=== PATIENT | male | born 1960 | race Caucasian/White ===

== ENCOUNTER 2016-10-06 18:48 | Emergency (ER) | payer BC, OTHER ==
[2016-10-06 19:09] VITALS: BP 142/93
--- NOTE | 2016-10-06 19:52 | EDM.PDOC ---
ED HPI Trauma - General Chief Complaint: Upper Extremity Injury/Pain Stated Complaint: WRIST PAIN Time Seen by Provider: 10/06/16 18:58 Source: Reports: Patient History Limitations: Reports: No limitations - History of Present Illness INITIAL COMMENTS - FREE TEXT/NARRATIVE: This is a 56-year-old male. On August 22 he had a procedure done to his left wrist and forearm. From an understanding took a piece of bone from his old and will hold onto the tendon and wrapped it around the radius and removed 2 carpal bones. This procedure was done by Dr. Cuba. The patient states over the last 2 weeks he been having increasing pain in his left wrist that seems to radiate into his fourth and fifth finger and also up into his forearm and elbow. Any movement of that wrist or movement of the hand are trying to hold something with the left hand seems to exacerbate this pain. It has progressively increased until Saturday he states it was unbearable. So he comes to the ER today. He has not called his surgeon though he supposed to have an appointment to see him next week late. The patient has a sling and wears a fabricator the splint on that forearm and wrist is removable. Denies any fever or chills he denies any trauma to the forearm and wrist recently. Allergies/ADRs: Allergies No Known Allergies Allergy (Verified 10/06/16 19:09) Home Medications: Ambulatory Orders Aspirin 81 mg PO DAILY 10/12/13 [Confirmed 10/06/16] Clopidogrel Bisulfate [Clopidogrel] 75 mg PO DAILY 10/12/13 [Confirmed 10/06/16] Lisinopril [Lisinopril] 2.5 mg PO DAILY 10/12/13 [Confirmed 10/06/16] Metoprolol Tartrate [Lopressor] 25 mg PO DAILY 10/12/13 [Confirmed 10/06/16] atorvaSTATin [Lipitor] 40 mg PO DAILY 10/12/13 [Confirmed 10/06/16] Albuterol/Ipratropium [Combivent Respimat] 1 puff INH QID PRN 06/29/14 [ Confirmed 10/06/16] Budesonide/Formoterol [Symbicort 160-4.5 Mcg Inhaler] 2 puff INH BID 06/29/14 [ Confirmed 10/06/16] Pantoprazole [ProTONIX] 40 mg PO DAILY 06/29/14 [Confirmed 10/06/16] oxyCODONE HCl [Oxycontin] 5 mg PO Q6H 10/06/16 [Confirmed 10/06/16] Past Medical History Cardiovascular History: Reports: [place], Stents Other Cardiovascular History: two stents left anterior descending artery Respiratory History: Reports: COPD Gastrointestinal History: Reports: GERD Musculoskeletal History: Reports: Arthritis - Past Surgical History HEENT Surgical History: Reports: Tonsillectomy Respiratory Surgical History: Reports: None Musculoskeletal Surgical History: Reports: Other (see below) Other Musculoskeletal Surgeries/Procedures:: two carpal bones surgically removed left wrist Social & Family History - Tobacco Use Smoking Status *Q: Former Smoker Years of Tobacco use: 40 Used Tobacco, but Quit: Yes Month Tobacco Last Used: 3 years ago Second Hand Smoke Exposure: No - Caffeine Use Caffeine Use: Reports: Soda - Alcohol Use Days Per Week of Alcohol Use: 1 (Used to be an alcoholic. Currently he is down to about 4 beers once a week.) Number of Drinks Per Day: 5 Total Drinks Per Week: 5 - Recreational Drug Use Recreational Drug Use: No Review of Systems - Review of Systems Review Of Systems: See Below Constitutional: Denies: chills, fever Eyes: Reports: no symptoms Ears: Reports: no symptoms Nose: Reports: no symptoms Mouth/Throat: Reports: no symptoms Respiratory: Reports: No Symptoms Cardiovascular: Reports: no symptoms GI/Abdominal: Reports: No symptoms Genitourinary: Reports: no symptoms Musculoskeletal: Reports: other (As per history of present illness) Skin: Reports: no symptoms Neurological: Reports: No Symptoms Psychiatric: Reports: no symptoms Trauma Exam - Physical Exam Exam: See Below Exam Limited By: No limitations General Appearance: Reports: alert, WD/WN, mild distress Head: Reports: normocephalic Eyes: bilateral eye: normal inspection Ears: Reports: normal external exam Nose: Reports: normal inspection Throat/Mouth: Reports: Normal lips, Normal voice Neck: Reports: full range of motion Respiratory Exam: Reports: no respiratory distress Back: Reports: full range of motion Extremities: Reports: other (Looking at the left forearm there is a surgical incision over the distal ulnar that appears to be well healed without any evidence of infection, the left wrist itself is mildly deformed due to the surgery but no acute findings are noted, he is able to make a fist but once he tries to close it there is marked increased pain and he has to relax the hand, palpation of the ulnar nerve at the wrist and also at the elbow does not reproduce his pain but it seems like movement of his fourth and fifth fingers tendons are what aggravated his pain, he's got a good radial pulse noted, sensation is intact in all 5 digits) Neurologic: Reports: alert, oriented x 3 Skin: Reports: Normal color, Warm/dry Course - Vital Signs Last Recorded V/S: Last Vital Signs Temp 98.5 F 10/06/16 19:04 Pulse 60 10/06/16 19:04 Resp 19 10/06/16 19:04 BP 142/93 H 10/06/16 19:04 Pulse Ox 93 L 10/06/16 19:04 - Orders/Labs/Meds Orders: Active Orders 24 hr Category Date Time Status Forearm 2V Lt [CR] Stat Exams 10/06/16 19:31 Taken Wrist Comp Min 3V Lt [CR] Stat Exams 10/06/16 19:31 Taken - Radiology Interpretation Free Text/Narrative:: X-rays of the left wrist and the left forearm shows the status post surgical status there does not appear to be any obvious abnormality other than the surgical procedure. - Re-Assessments/Exams Free Text/Narrative Re-Assessment/Exam: 10/06/16 21:18 I spoke to the patient at length regarding his symptoms and the need to followup with Dr. Cuba on Saturday for reevaluation. The Percocet causes him to be here in the head so he doesn't take them so I'll put him on some Toradol pills hopefully to help with the pain and any inflammation might be causing the pain. Departure - Departure Time of Disposition: 21:19 Disposition: Home, Self-Care 01 Condition: good Clinical Impression: Pain associated with surgical procedure, Wrist pain, left Referrals: Abner Cuba MD [Consulting Physician] - Forms: ED Department Discharge Additional Instructions: Call Dr. Cuba's office on Saturday to see to get an appointment as soon as possible, if the arm is feeling good I would be without the splint for comfort and use ice as needed to help with the pain, once the arm and wrist get tired than placed the splint back on, return to the ER as needed - My Orders Last 24 Hours: My Active Orders 10/06/16 19:31 Forearm 2V Lt [CR] Stat Wrist Comp Min 3V Lt [CR] Stat - Assessment/Plan Last 24 Hours: My Active Orders 10/06/16 19:31 Forearm 2V Lt [CR] Stat Wrist Comp Min 3V Lt [CR] Stat
--- NOTE | 2016-10-07 09:36 | CR ---
Forearm: Two views of the left forearm were obtained. Comparison: Previous wrist surgery is noted. Bony structures are somewhat osteopenic. Nothing acute is appreciated. Impression: 1. Previous left wrist surgery. Osteopenia. 2. No acute bony abnormality is identified on left forearm study. Diagnostic code #2
--- NOTE | 2016-10-07 13:54 | CR ---
Left wrist: Four views of the left wrist were obtained. Comparison: No previous study. Previous resection of the distal ulna is noted. Mild deformity of the distal radius is seen compatible with old healed fracture. Several bony densities are seen off the lateral wrist felt to be old. Previous resection of the portion of the navicular bone is noted. Bony structures are osteoporotic. Mild degenerative change noted within the CMC joint of the thumb. Metallic density noted within the lateral hand. Soft tissue swelling is noted. Nothing acute is definitely appreciated. Impression: 1. Previous surgery as described above. 2. Mild degenerative change and other incidental findings. 3. Nothing acute is definitely appreciated. Diagnostic code #3
== END 2016-10-06 21:30 | disposition home or self-care (01) ==
LOC: JD.ED 18:48
DX: G89.18 Other acute postprocedural pain (principal); M25.532 Pain in left wrist; J44.9 Chronic obstructive pulmonary disease, unspecified; K21.9 Gastro-esophageal reflux disease without esophagitis; Z79.82 Long term (current) use of aspirin; Z79.899 Other long term (current) drug therapy; Z87.891 Personal history of nicotine dependence
CPT/HCPCS: 73090-26-LT; 73090-LT; 73110-26-LT; 73110-LT; 99282; 99283

== ENCOUNTER 2016-12-29 14:07 | Emergency (ER) | payer BC, OTHER ==
[2016-12-29 14:20] VITALS: BP 107/74
[2016-12-29] MEDS ORDERED: Sodium Chloride 0.9% 10 ML Syringe FLUSH PRN (14:23)
[2016-12-29] MEDS ORDERED: Aspirin 81 MG Tab.Chew PO ONE (14:23)
--- NOTE | 2016-12-29 15:03 | EDM.PDOC ---
ED HPI GENERAL MEDICAL PROBLEM - General Chief Complaint: Cardiovascular Problem Stated Complaint: CHEST PAIN Time Seen by Provider: 12/29/16 14:18 Source of Information: Reports: Patient History Limitations: Reports: No Limitations - History of Present Illness INITIAL COMMENTS - FREE TEXT/NARRATIVE: The patient presents with chest pain. He was unloading groceries at home with this started about 30minutes ago. He had heaviness in his chest. He sat down and took a nitro. That did help. By the time I saw him he had no pain. He had no shortness of breath. He has no nausea, vomiting or abdominal pain. He had an CA 3 years ago and his concerned because the pain felt the same. He has no fever, chills or cough. Onset: Today, Sudden Duration: Minutes: (30) Location: Reports: Chest Quality: Reports: Other (Heaviness) Severity: Moderate Improves with: Reports: Rest Worsens with: Reports: None Context: Reports: Activity (He was unloading groceries) Associated Symptoms: Reports: Chest Pain. Denies: Cough, Fever/Chills, Nausea/ Vomiting, Shortness of Breath Treatments [employer]: Reports: Nitroglycerin Chest Pain Score (Numeric/FACES): 2 - Related Data Allergies Allergy/AdvReac Type Severity Reaction Status Date / Time No Known Allergies Allergy Verified 12/29/16 14:20 Home Meds: Home Meds Aspirin 81 mg PO DAILY 10/12/13 [History] Clopidogrel Bisulfate [Clopidogrel] 75 mg PO DAILY 10/12/13 [History] Lisinopril [Lisinopril] 2.5 mg PO DAILY 10/12/13 [History] Metoprolol Tartrate [Lopressor] 25 mg PO DAILY 10/12/13 [History] atorvaSTATin [Lipitor] 40 mg PO DAILY 10/12/13 [History] Albuterol/Ipratropium [Combivent Respimat] 1 puff INH QID PRN 06/29/14 [History] Budesonide/Formoterol [Symbicort 160-4.5 Mcg Inhaler] 2 puff INH BID 06/29/14 [ History] Pantoprazole [ProTONIX] 40 mg PO DAILY 06/29/14 [History] oxyCODONE HCl [Oxycontin] 5 mg PO Q6H 10/06/16 [History] Past Medical History Cardiovascular History: Reports: CA, SOB on Exertion, Stents Other Cardiovascular History: two stents left anterior descending artery Respiratory History: Reports: COPD Gastrointestinal History: Reports: GERD Musculoskeletal History: Reports: Arthritis - Past Surgical History HEENT Surgical History: Reports: Tonsillectomy Cardiovascular Surgical History: Reports: Coronary Artery Stent Respiratory Surgical History: Reports: None Musculoskeletal Surgical History: Reports: Other (See Below) Social & Family History - Family History Family Medical History: Noncontributory - Tobacco Use Smoking Status *Q: Former Smoker Years of Tobacco use: 25 Used Tobacco, but Quit: Yes Month Tobacco Last Used: 1 Second Hand Smoke Exposure: No - Caffeine Use Caffeine Use: Reports: Soda - Alcohol Use Days Per Week of Alcohol Use: 1 (Used to be an alcoholic. Currently he is down to about 4 beers once a week.) Number of Drinks Per Day: 5 Total Drinks Per Week: 5 - Recreational Drug Use Recreational Drug Use: No ED ROS GENERAL - Review of Systems Review Of Systems: See Below Constitutional: Reports: No Symptoms HEENT: Reports: No Symptoms Respiratory: Reports: No Symptoms Cardiovascular: Reports: Chest Pain Endocrine: Reports: No Symptoms GI/Abdominal: Reports: No Symptoms : Reports: No Symptoms Musculoskeletal: Reports: No Symptoms Skin: Reports: No Symptoms ED EXAM, GENERAL - Physical Exam Exam: See Below Exam Limited By: No Limitations General Appearance: Alert, No Apparent Distress Ears: Normal External Exam Nose: Normal Inspection Head: Atraumatic, Normocephalic Neck: Normal Inspection Respiratory/Chest: No Respiratory Distress, Lungs Clear, Normal Breath Sounds Cardiovascular: Normal Peripheral Pulses, Regular Rate, Rhythm, No Edema GI/Abdominal: Soft, Non-Tender, No Organomegaly, No Mass Back Exam: Normal Inspection Extremities: Normal Inspection EKG INTERPRETATION EKG Date: 12/29/16 Time: 14:13 Rhythm: Other (sinus bradycardia) Rate (Beats/Min): 52 [place]: Normal P-Wave: Present QRS: RBBB ST-T: Normal QT: Normal Course - Vital Signs Last Recorded V/S: Last Vital Signs Temp 98.1 F 12/29/16 14:17 Pulse 53 L 12/29/16 14:17 Resp 16 12/29/16 14:17 BP 107/74 12/29/16 14:17 Pulse Ox 94 L 12/29/16 14:17 - Orders/Labs/Meds Orders: Active Orders 24 hr Category Date Time Status Cardiac Monitoring [RC] . DIRECTED Care 12/29/16 14:23 Active EKG Documentation Completion [RC] STAT Care 12/29/16 14:23 Active Oxygen Therapy [RC] PRN Care 12/29/16 14:23 Active Peripheral IV Care [RC] . DIRECTED Care 12/29/16 14:23 Active Chest 1V Frontal [CR] Stat Exams 12/29/16 14:23 Taken TROPONIN I [CHEM] Stat Lab 12/29/16 17:15 Received Sodium Chloride 0.9% [Saline Flush] Med 12/29/16 14:23 Active 10 ml FLUSH ASDIRECTED PRN Peripheral IV Insertion Adult [OM.PC] Stat Oth 12/29/16 14:23 Ordered Medication Orders Sodium Chloride (Saline Flush) 10 ml FLUSH ASDIRECTED PRN PRN Reason: Keep Vein Open Last Admin: 12/29/16 14:28 Dose: 10 ml Labs: Laboratory Tests 12/29/16 12/29/16 Range/Units 14:20 14:20 WBC 9.84 H (4.23-9.07) K/mm3 RBC 4.75 (4.63-6.08) M/mm3 Hgb 14.8 (13.7-17.5) gm/L Hct 43.1 (40.1-51.0) % MCV 90.7 (79.0-92.2) fl MCH 31.2 (25.7-32.2) pg MCHC 34.3 (32.2-35.5) g/dl RDW Std Deviation 43.9 (35.1-43.9) fL Plt Count 171 (163-337) K/mm3 MPV 12.4 H (9.4-12.3) fl Neut % (Auto) 58.4 (34.0-67.9) % Lymph % (Auto) 26.7 (21.8-53.1) % [place] % (Auto) 12.1 (5.3-12.2) % Eos % (Auto) 2.2 (0.8-7.0) Baso % (Auto) 0.3 (0.1-1.2) % Neut # (Auto) 5.74 H (1.78-5.38) K/mm3 Lymph # (Auto) 2.63 (1.32-3.57) K/mm3 [place] # (Auto) 1.19 H (0.30-0.82) K/mm3 Eos # (Auto) 0.22 (0.04-0.54) K/mm3 Baso # (Auto) 0.03 (0.01-0.08) K/mm3 Sodium 140 (136-145) mEq/L Potassium 3.8 (3.5-5.1) mEq/L Chloride 105 (98-107) mEq/L Carbon Dioxide 27 (21-32) mEq/L Anion Gap 11.8 (5-15) BUN 13 (7-18) mg/dL Creatinine 1.2 (0.7-1.3) mg/dL Est Cr Clr Drug Dosing TNP Estimated GFR (MDRD) > 60 (>60) mL/min BUN/Creatinine Ratio 10.8 L (14-18) Glucose 128 H (74-106) mg/dL Calcium 8.7 (8.5-10.1) mg/dL Total Bilirubin 0.8 (0.2-1.0) mg/dL AST 21 (15-37) U/L ALT 41 (16-63) U/L Alkaline Phosphatase 122 H (46-116) U/L Troponin I < 0.017 (0.00-0.056) ng/mL Total Protein 7.5 (6.4-8.2) g/dl Albumin 4.2 (3.4-5.0) g/dl Globulin 3.3 gm/dL Albumin/Globulin Ratio 1.3 (1-2) Meds: Medications Generic Name Dose Route Start Last Admin Trade Name Freq PRN Reason Stop Dose Admin Sodium Chloride 10 ml 12/29/16 14:23 12/29/16 14:28 Saline Flush FLUSH 10 ml ASDIRECTED PRN Administration Keep Vein Open Discontinued Medications Generic Name Dose Route Start Last Admin Trade Name Freq PRN Reason Stop Dose Admin Aspirin 324 mg 12/29/16 14:23 12/29/16 14:27 Aspirin PO 12/29/16 14:24 324 mg ONETIME ONE Administration - Re-Assessments/Exams Free Text/Narrative Re-Assessment/Exam: 12/29/16 15:05 I ordered an IV saline lock, aspirin 324mg by mouth, EKG, CXR and labs. He is pain free now. His EKG shows a RBBB. 12/29/16 17:24 His CXR looks good. His CBC and CMP look good. His troponin is negative. He has no more pain. I have ordered a repeat troponin. I will call him the results. He has company coming and he would like to go. Departure - Departure Time of Disposition: 17:25 Disposition: Home, Self-Care 01 Condition: Good Clinical Impression: Chest pain Qualifiers: Chest pain type: unspecified Qualified Code(s): R07.9 - Chest pain, unspecified Referrals: Jasmina Deleon MD [Primary Care Provider] - 2 Weeks Forms: ED Department Discharge Additional Instructions: Take your medication as prescribed. Please return if you are worse. - My Orders Last 24 Hours: My Active Orders 12/29/16 14:23 Cardiac Monitoring [RC] . DIRECTED EKG Documentation Completion [RC] STAT Oxygen Therapy [RC] PRN Peripheral IV Care [RC] . DIRECTED Chest 1V Frontal [CR] Stat Sodium Chloride 0.9% [Saline Flush] 10 ml FLUSH ASDIRECTED PRN Peripheral IV Insertion Adult [OM.PC] Stat 12/29/16 17:15 TROPONIN I [CHEM] Stat - Assessment/Plan Last 24 Hours: My Active Orders 12/29/16 14:23 Cardiac Monitoring [RC] . DIRECTED EKG Documentation Completion [RC] STAT Oxygen Therapy [RC] PRN Peripheral IV Care [RC] . DIRECTED Chest 1V Frontal [CR] Stat Sodium Chloride 0.9% [Saline Flush] 10 ml FLUSH ASDIRECTED PRN Peripheral IV Insertion Adult [OM.PC] Stat 12/29/16 17:15 TROPONIN I [CHEM] Stat
--- NOTE | 2016-12-30 06:50 | CR ---
Chest: Portable view of the chest was obtained. Comparison: Previous chest x-ray of 09/19/13. Heart size is normal. Mild tortuosity of the thoracic aorta is seen. Lungs are clear with no acute infiltrates. Bony structures are osteopenic but grossly intact. Impression: 1. Nothing acute is identified on portable chest x-ray. Diagnostic code #1
== END 2016-12-29 17:33 | disposition home or self-care (01) ==
LOC: JD.ED 14:07
DX: R07.9 Chest pain, unspecified (principal); I25.2 Old myocardial infarction; J44.9 Chronic obstructive pulmonary disease, unspecified; K21.9 Gastro-esophageal reflux disease without esophagitis; M19.90 Unspecified osteoarthritis, unspecified site; Z95.5 Presence of coronary angioplasty implant and graft; Z98.890 Other specified postprocedural states; Z79.82 Long term (current) use of aspirin; Z79.02 Long term (current) use of antithrombotics/antiplatelets; Z79.899 Other long term (current) drug therapy; Z87.891 Personal history of nicotine dependence
CPT/HCPCS: 36415; 71010; 80053; 84484; 85025; 93005; 99285; A9270; J7050; 99284

== ENCOUNTER 2017-10-16 03:25 | Emergency (ER) | payer BC, OTHER ==
[2017-10-16] MEDS ORDERED: Ondansetron 4 MG/2 ML SDV IVPUSH ONE (05:32)
[2017-10-16] MEDS ORDERED: HYDROmorphone 0.5 MG/0.5 ML SYRINGE IVPUSH STA (05:32)
[2017-10-16] MEDS ORDERED: Sodium Chloride 0.9% 1,000 ML IV SCH (05:45)
--- NOTE | 2017-10-16 05:47 | EDM.PDOC ---
ED HPI GENERAL MEDICAL PROBLEM - General Source of Information: Reports: Patient, Family (Sister) History Limitations: Reports: No Limitations Lower Back Pain Score (Numeric/FACES): 10 <Adonay Gardiner - Last Filed: 10/16/17 06:57> <PetrCammatteo Johnson - Last Filed: 10/16/17 15:16> - General Chief Complaint: Back Pain or Injury Stated Complaint: [facility] Time Seen by Provider: 10/16/17 03:28 - History of Present Illness INITIAL COMMENTS - FREE TEXT/NARRATIVE: The patient states that he slipped and fell flat on his back Saturday night, 2017. He states that he had immediate pain to the left side of his thoracic and lumbar spine. He states that he started to wear a wrap, and felt better yesterday morning, but his pain returned and progressively got worse yesterday afternoon, to the point that by last night he could not move. He states that he feels okay if he remains perfectly still, but developed severe spasms with virtually any movement. He took a [place] before calling EMS tonight, and EMS gave him an additional 1 mg IV Dilaudid just to be able to transport him. No prior injury to that area. The patient's PCP is Dr. Jasmina Deleon. (Adonay Gardiner) - Related Data Allergies Allergy/AdvReac Type Severity Reaction Status Date / Time No Known Allergies Allergy Verified 12/29/16 14:20 Home Meds: Home Meds Aspirin 81 mg PO DAILY 10/12/13 [History] Lisinopril 2.5 mg PO DAILY 10/12/13 [History] atorvaSTATin [Lipitor] 40 mg PO DAILY 10/12/13 [History] Albuterol/Ipratropium [Combivent Respimat] 1 puff INH QID PRN 06/29/14 [History] Budesonide/Formoterol [Symbicort 160-4.5 Mcg Inhaler] 2 puff INH BID 06/29/14 [ History] Pantoprazole [ProTONIX] 40 mg PO DAILY 06/29/14 [History] Atenolol 12.5 mg PO DAILY 10/16/17 [History] Cyclobenzaprine [Flexeril] 10 mg PO TID PRN #30 tab 10/16/17 [Rx] Esomeprazole [NexIUM] 40 mg PO DAILY 10/16/17 [History] Gabapentin [Neurontin] 300 mg PO DAILY 10/16/17 [History] Hydrocodone/Acetaminophen [Hydrocodon-Acetaminophn 10-325] 1 tab PO Q4H PRN 02/25 [History] Ibuprofen [Ibu] 800 mg PO TID PRN #40 tablet 10/16/17 [Rx] Ondansetron [Zofran ODT] 4 mg PO Q4H PRN 10/16/17 [History] Sertraline [Zoloft] 25 mg PO DAILY 10/16/17 [History] Sertraline [Zoloft] 75 mg PO DAILY 10/16/17 [History] traMADol [Ultram] 1 tab PO Q6H PRN 10/16/17 [History] traMADol [Ultram] 50 mg PO Q6HR PRN #15 tab 10/16/17 [Rx] Past Medical History Cardiovascular History: Reports: CAD, [place] Respiratory History: Reports: COPD Gastrointestinal History: Reports: GERD Musculoskeletal History: Reports: Arthritis - Past Surgical History HEENT Surgical History: Reports: Oral Surgery ([place] teeth extraction), Tonsillectomy Cardiovascular Surgical History: Reports: Coronary Artery Stent (x 2 to LAD) GI Surgical History: Reports: Hernia Repair/Other <Adonay Gardiner - Last Filed: 10/16/17 06:57> Social & Family History - Family History Family Medical History: Noncontributory - Tobacco Use Smoking Status *Q: Current Every Day Smoker Years of Tobacco use: 44 Packs/Tins Daily: 0.2 Packs/Tins Daily Comment: Down from 3 ppd - Caffeine Use Caffeine Use: Reports: None - Alcohol Use Alcohol Use History: Yes Alcohol Use Frequency: Binges - Recreational Drug Use Recreational Drug Use: No - Living Situation & Occupation Living situation: Reports: , Alone Occupation: Unemployed <Adonay Gardiner - Last Filed: 10/16/17 06:57> Review of Systems - Review of Systems Review Of Systems: ROS reveals no pertinent complaints other than HPI. <Adonay Gardiner - Last Filed: 10/16/17 06:57> ED EXAM, GENERAL - Physical Exam Exam: See Below Exam Limited By: No Limitations General Appearance: Alert, WD/WN, No Apparent Distress Eye Exam: Bilateral Eye: Normal Inspection Ears: Normal External Exam, Hearing Grossly Normal Nose: Normal Inspection, No Blood Throat/Mouth: Normal Inspection, Normal Lips, Normal Voice, No Airway Compromise Head: Atraumatic, Normocephalic Neck: Normal Inspection, Full Range of Motion Respiratory/Chest: No Respiratory Distress, Lungs Clear, Normal Breath Sounds, No Accessory Muscle Use Cardiovascular: Normal Peripheral Pulses, Regular Rate, Rhythm, No Gallop, No JVD, No Murmur, No Rub Peripheral Pulses: 4+: Radial (L), Radial (R) GI/Abdominal: Normal Bowel Sounds, Soft, Non-Tender, No Organomegaly, No Distention, No Abnormal Bruit, No Mass (Male) Exam: Deferred Rectal (Males) Exam: Deferred Back Exam: Other (No visible abnormality to the left mid-back, such as swelling , erythema, ecchymosis, or abrasion. No tenderness to palpation along the thoracic or lumbar spinous processes, however, the patient screams out in pain with even the slightest touch just immediately left of the thoracic or lumbar spinous processes. His tenderness is so extreme as to disallow meaningful palpation of the paraspinous musculature or soft tissue.) Extremities: Normal Inspection, Normal Range of Motion, No Pedal Edema, Normal Capillary Refill Neurological: Alert, Oriented, Normal Cognition, No Motor/Sensory Deficits Psychiatric: Normal Affect Skin Exam: Warm, Dry, Intact, Normal Color, No Rash <Adonay Gardiner A - Last Filed: 10/16/17 06:57> Course <Adonay Gardiner A - Last Filed: 10/16/17 06:57> <Arely Humphreys A - Last Filed: 10/16/17 15:16> - Vital Signs Last Recorded V/S: Last Vital Signs Temp 36.9 C 10/16/17 03:26 Pulse 57 L 10/16/17 07:19 Resp 18 10/16/17 07:19 BP 113/72 10/16/17 07:19 Pulse Ox 91 L 10/16/17 07:19 - Orders/Labs/Meds Orders: Active Orders 24 hr Category Date Time Status Lumbar Spine 2 or 3V [CR] Stat Exams 10/16/17 04:40 Taken Thoracic Spine 2V [CR] Stat Exams 10/16/17 05:40 Taken Labs: Laboratory Tests 10/16/17 10/16/17 10/16/17 Range/Units 06:00 06:00 06:00 WBC 11.40 H (4.23-9.07) K/mm3 RBC 4.79 (4.63-6.08) M/mm3 Hgb 14.9 (13.7-17.5) gm/L Hct 44.1 (40.1-51.0) % MCV 92.1 (79.0-92.2) fl MCH 31.1 (25.7-32.2) pg MCHC 33.8 (32.2-35.5) g/dl RDW Std Deviation 45.3 H (35.1-43.9) fL Plt Count 169 (163-337) K/mm3 MPV 11.8 (9.4-12.3) fl Neutrophils % (Manual) 70 H (40-60) % Band Neutrophils % 0 (0-10) % Lymphocytes % (Manual) 17 L (20-40) % Atypical Lymphs % 0 % Monocytes % (Manual) 11 H (2-10) % Eosinophils % (Manual) 1 (0.8-7.0) % Basophils % (Manual) 1 (0.2-1.2) Platelet Estimate Adequate Plt Morphology Comment See note Anisocytosis 1+ slight RBC Morph Comment Abnormal PT 10.3 (9.5-12.1) SECONDS INR 0.94 APTT 25 (24-31) SECONDS Sodium 141 (136-145) mEq/L Potassium 3.3 L (3.5-5.1) mEq/L Chloride 105 (98-107) mEq/L Carbon Dioxide 26 (21-32) mEq/L Anion Gap 13.3 (5-15) BUN 10 (7-18) mg/dL Creatinine 1.0 (0.7-1.3) mg/dL Est Cr Clr Drug Dosing 80.52 mL/min Estimated GFR (MDRD) > 60 (>60) mL/min BUN/Creatinine Ratio 10.0 L (14-18) Glucose 115 H (74-106) mg/dL Calcium 8.6 (8.5-10.1) mg/dL Total Bilirubin 0.5 (0.2-1.0) mg/dL AST 6 L (15-37) U/L ALT 22 (16-63) U/L Alkaline Phosphatase 139 H (46-116) U/L Total Protein 6.7 (6.4-8.2) g/dl Albumin 3.4 (3.4-5.0) g/dl Globulin 3.3 gm/dL Albumin/Globulin Ratio 1.0 (1-2) Meds: Medications Discontinued Medications Generic Name Dose Route Start Last Admin Trade Name Freq PRN Reason Stop Dose Admin Hydromorphone HCl 1 mg 10/16/17 05:32 10/16/17 05:51 Dilaudid IVPUSH 10/16/17 05:33 1 mg ONETIME STA Administration Sodium Chloride 1,000 mls @ 150 mls/hr 10/16/17 05:45 10/16/17 05:52 Normal Saline IV 150 mls/hr ASDIRECTED KENAN Administration Ketorolac Tromethamine 30 mg 10/16/17 08:18 10/16/17 09:32 Toradol IVPUSH 10/16/17 08:19 30 mg ONETIME ONE Administration Morphine Sulfate 4 mg 10/16/17 08:18 10/16/17 09:30 Morphine IVPUSH 4 mg Q2H PRN Administration Pain Ondansetron HCl 4 mg 10/16/17 05:32 10/16/17 05:50 Zofran IVPUSH 10/16/17 05:33 4 mg ONETIME ONE Administration Orphenadrine Citrate 100 mg 10/16/17 06:52 10/16/17 07:17 Norflex PO 10/16/17 06:53 100 mg ONETIME STA Administration Oxycodone/Acetaminophen 1 tab 10/16/17 09:31 10/16/17 09:37 Percocet 325-5 Mg PO 10/16/17 09:32 1 tab ONETIME ONE Administration - Re-Assessments/Exams Free Text/Narrative Re-Assessment/Exam: 10/16/17 05:33 5-view radiographs of the thoracic and lumbar spine are limited in technique. No obvious bony injuries seen, but more subtle injuries cannot be excluded. On examination, the patient has no tenderness to palpation along the thoracic or lumbar spinous processes, however, the patient screams out in pain with even the slightest touch of the left paraspinous musculature. No visible abnormality to the area of concern, such as erythema, ecchymosis, or abrasion, and it may be that the patient is being overly dramatic, however, in order to exclude an internal injury, I have ordered a CT of the chest abdomen and pelvis with IV contrast. 10/16/17 07:00 The patient has returned from CT scan, however, the CT reading is still pending. The patient's WBC count is mildly elevated at 11.40. The manual differential is still pending. The remainder of the CBC is unremarkable. The patient's chemistry panel is unremarkable. The patient's coags are still pending. Case discussed with Dr. Jayda Humphreys, and care of the patient turned over to her at this time, for change of shift. (Adonay Gardiner) Free Text/Narrative Re-Assessment/Exam: 10/16/17 09:15 CT scan of the chest abdomen pelvis showed no traumatic injury. Patient did feel somewhat better after IV pain medications. I gave him a dose of Toradol as well. He was still very uncomfortable with movement. I did offer possible admission for pain control but he elected to be discharged with prescriptions for ibuprofen, cyclobenzaprine, and tramadol. (Arely Humphreys) Departure <Adonay Gardiner - Last Filed: 10/16/17 06:57> - Departure Time of Disposition: 08:19 <Arely Humphreys - Last Filed: 10/16/17 15:16> - Departure Disposition: Home, Self-Care 01 Clinical Impression: Back pain Qualifiers: Back pain location: thoracic back pain Chronicity: acute Back pain laterality: left Qualified Code(s): M54.6 - Pain in thoracic spine - Discharge Information Prescriptions: traMADol [Ultram] 50 mg PO Q6HR PRN #15 tab PRN Reason: Pain Cyclobenzaprine [Flexeril] 10 mg PO TID PRN #30 tab PRN Reason: Muscle Spasm Ibuprofen [Ibu] 800 mg PO TID PRN #40 tablet PRN Reason: Pain Instructions: Back Pain, Adult, [id number] Referrals: Jasmina Deleon MD [Primary Care Provider] - Forms: ED Department Discharge Additional Instructions: 1. Take ibuprofen as prescribed for pain 2. Take cyclobenzaprine as prescribed for muscle relaxation 3. Take tramadol as needed for severe pain. No driving or working while taking this medication as it may make you sleepy or confused. 4. Follow up with your primary doctor next week for further care. 5. Your CT scan showed a small (1 cm) lesion in your pancreas. The radiologist recommends you get a repeat CT scan in 6 months (April 2018) to monitor.
[2017-10-16] MEDS ORDERED: Orphenadrine 100 MG Tab.ER PO STA (06:52)
[2017-10-16 07:22] VITALS: BP 113/72
--- NOTE | 2017-10-16 07:55 | CT ---
CT chest Technique: Multiple axial sections were obtained from above the lung apices inferiorly through the lung bases. Intravenous contrast was utilized. Comparison: No prior chest CT, prior chest x-ray of 12/29/16 is available. Findings: Aorta shows mild atherosclerotic change. No aneurysm is seen. Pulmonary arteries appear normal. Mild coronary artery calcification is seen. No pericardial thickening is seen. Axillary regions show no adenopathy or mass. Areas of atelectasis and scarring is seen posteriorly within both lung bases. Emphysematous change is seen. No findings of pulmonary contusion. No pneumothorax or pleural effusions are seen. Moderate sized hiatal hernia is noted. Minimal fluid seen within the left lung base which appears to be loculated and is likely chronic. No discrete rib fracture is seen. Reconstructed sagittal view shows the sternum to be intact. No discrete fracture is seen within the thoracic spine. Impression: 1. Areas of scarring and atelectasis posteriorly within both lung bases. 2. Emphysematous change. 3. Other incidental findings with nothing acute being seen on CT study of the chest. Diagnostic code #2 CT abdomen and pelvis Technique: Multiple axial sections were obtained from above the dome of the diaphragm inferiorly through the pubic symphysis. Intravenous contrast was utilized. Delayed images were obtained through the bladder. Comparison: No prior abdominal or pelvic CT exam. Findings: 1.9 cm cyst is seen within the dome of the right lobe of the liver. Liver otherwise appears normal by CT exam. Spleen appears unremarkable. Adrenal glands show no nodule. Kidneys show symmetric contrast enhancement and appear within normal limits. Aorta shows atherosclerotic change without aneurysm. Gallbladder contains no calcified gallstones. Pancreas shows a small low-density lesion within the tail measuring about 1 cm in size. Pancreas is otherwise unremarkable. No retroperitoneal adenopathy or mesenteric abnormalities are seen. No pelvic mass or adenopathy is seen. Mild diverticulosis is seen near the junction of the descending and sigmoid colon. Delayed images shows contrast within the distal ureters and within the bladder. Bone window settings were reviewed which show scattered degenerative change within the spine. Nothing acute is seen within the lumbar spine. Impression: 1. Small low-density lesion within the tail of the pancreas measuring 1 cm. This is most likely benign but follow-up contrast enhanced CT recommended in 6 months to confirm stability. As follow-up exam would occur in April,. 2. Other incidental findings. Nothing acute is seen on CT study of the abdomen and pelvis. Diagnostic code #9
[2017-10-16] MEDS ORDERED: Ketorolac 30 MG/ML SDV IVPUSH ONE (08:18)
[2017-10-16] MEDS ORDERED: Morphine 4 MG/ML Syringe IVPUSH PRN (08:18)
[2017-10-16] MEDS ORDERED: Acetaminophen/oxyCODONE 325-5 MG Tab PO ONE (09:31)
--- NOTE | 2017-10-17 10:21 | CR ---
Thoracic spine: AP and crosstable lateral views of the thoracic spine were obtained. Comparison: No prior thoracic spine exam. Mild scoliosis is seen. Pedicles are intact. Vertebral body heights are maintained. Minimal scattered disc space narrowing is seen. No discrete fracture or subluxation is seen. Impression: 1. Minimal scattered disc space narrowing and mild scoliosis. 2. Nothing acute is appreciated on two-view thoracic spine study. Diagnostic code #2
--- NOTE | 2017-10-17 10:21 | CR ---
Lumbar spine: AP and crosstable lateral views of the lumbar spine were obtained. Comparison: No prior lumbar spine study. Vertebral body heights are maintained. Diffuse posterior disc space narrowing is seen throughout the lumbar spine. Pedicles as well as visualized transverse and spinous processes are intact. No discrete fracture or abnormal subluxation is seen. Mild scattered endplate osteophytes are seen. Impression: 1. Slight degenerative change. Nothing acute is seen. Diagnostic code #2
== END 2017-10-16 09:45 | disposition home or self-care (01) ==
LOC: JD.ED 03:25
DX: M54.6 Pain in thoracic spine (principal); F17.210 Nicotine dependence, cigarettes, uncomplicated; J44.9 Chronic obstructive pulmonary disease, unspecified; K21.9 Gastro-esophageal reflux disease without esophagitis; Z79.82 Long term (current) use of aspirin; Z79.899 Other long term (current) drug therapy
CPT/HCPCS: 36415; 71260; 72070; 72100; 74177; 80053; 85007; 85027; 85610; 85730; 96361; 96374; 96375; 99285; A9270; J1170; J1885; J2270; J2405; J7040; 99284